=== PATIENT | male | born 1955 | race Caucasian/White ===

== ENCOUNTER 2016-08-22 18:14 | Observation (INO) | payer BC ==
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
--- NOTE | ~2016-08-22 | OR ---
Unit #: [id number] #: [id number] Patient: MAURO MARTINEZ [id number] [address] [place], [place] [address] [id number] MR#: [id number] NAME: MAURO MARTINEZ ROOM: 218 Date of Procedure: 08/24/2016 Admission Date: 08/22/2016 Surgeon: Glenn Fitzgerald M.D. : 1955 Attending Physician: Sean Gibbons M.D. OPERATIVE REPORT PREOPERATIVE DIAGNOSIS Anemia. PROCEDURES PERFORMED Upper gastrointestinal endoscopy with biopsy and colonoscopy with polypectomy. POSTOPERATIVE DIAGNOSES For upper endoscopy: Mild prepyloric antral gastritis, otherwise normal examination up to third part of the duodenum. Biopsy obtained from the antrum for CLOtest. For colonoscopy: 1. The patient had 3 sessile polyps in the transverse colon and 2 in the cecum. All the polyps were removed using snare cautery polypectomy, retrieved and sent for histology. 2. Rest of the examination up to cecum and terminal ileum was normal. The quality of prep was excellent. RECOMMENDATIONS Allow regular diet. The patient can be discharged home from GI standpoint. He will follow up in the office on 09/06/2016 at 10:00 a.m. SEDATION USED MAC. DESCRIPTION OF PROCEDURE Following detailed explanation of the potential risks and complications of an upper endoscopy and a colonoscopy, namely perforation, bleeding, complication related to sedation, the patient was brought to GI lab and laid in the left lateral decubitus position. Lubricated tip of the Olympus video upper endoscope was passed through the bite block into the proximal esophagus under direct vision. The entire esophageal mucosa was examined and appeared normal. Z-line was nicely demarcated, there being no esophagitis or hiatus hernia. The scope was then advanced into the gastric cavity and the latter was insufflated. Mucosa of the fundus, body, and antrum was examined. Mild prepyloric antral erythema erosions were noted indicating antral gastritis. Pylorus was intubated with visualization of the normal duodenal bulb and second and third part of the duodenum. Upon withdrawal and retroflexion, incisura, cardia, and greater curve examined and biopsy obtained from the antrum for CLOtest. The scope Unit #: [id number] #: [id number] Patient: MAURO MARTINEZ was then withdrawn in the distal esophagus. The entire esophageal mucosa was examined all the way up to pharynx. No additional findings noted. The examination table was then turned by 180 degrees and the patient positioned for a colonoscopy. A digital rectal examination was performed which was normal. Lubricated tip of the Olympus video colonoscope was inserted through the anus and advanced under direct vision. The scope was advanced and passed up to sigmoid into descending colon. No diverticula were noted in this area. The scope tip was then navigated all the way up to cecum with visualization of ileocecal valve and the appendiceal orifice. Preparation was excellent with good visualization and photodocumentation was obtained. Last few inches of the terminal ileum also visualized after intubation of the ileocecal valve and appeared normal. Successive segments of the colonic mucosa were examined upon withdrawal. The patient was noted to have a total of 5 polyps, 3 in the transverse colon and 2 in the cecum. The polyps ranged in size from 5 mm to 1.5 cm each. All the polyps were sessile and were removed using snare polypectomy or snare cautery polypectomy. All were retrieved and sent for histology. Excellent hemostasis was achieved and photodocumentation was obtained. No additional polyps were noted. The patient did not have any diverticulosis nor any hemorrhoids. The scope was then withdrawn. The patient returned to the recovery area. He tolerated the procedure without any postprocedure complications. Dictated by... Rosenda Cordoba/sherly TD: 08/25/2016 23:07 JOB #: [id number] CC: Rosenda Robertson M.D. OPERATIVE REPORT Page 1 of 1 X Glenn Fitzgerald MD X PROCEDURE OPERATIVE NOTE
--- NOTE | ~2016-08-22 | CO ---
Unit #: [id number] #: [id number] Patient: MAURO MARTINEZ [id number] [address] [place], [place] [address] [id number] I MR#: [id number] NAME: MAURO MARTINEZ ROOM: 218 Age: 61 Sex: M Admission Date: 08/22/2016 : 1955 Attending Physician: Sean Gibbons M.D. Primary Care Physician: No Primary Care Physician Consultation Date: 08/23/2016 CONSULTATION REPORT REASON FOR CONSULTATION Moderate to severe anemia. HISTORY This pleasant gentleman, who is 61 years old, works at an [employer] facility. The patient is of [place] origin but speaks fairly good Arabic. He presented with a history of fatigue to his family doctor. Upon workup, found to have hemoglobin of 7.7 and patient was also found to have occult gastrointestinal blood loss on examination. He has postprandial dyspeptic symptoms and takes [place]-Laurel on an as needed basis. He also describes symptoms suggestive of prostatic enlargement which has been treated in the past. There is no history of obvious melena, hematochezia or hematemesis. He has a history of renal stones in the past. PAST MEDICAL HISTORY Significant for history of renal stones and prostatism. PREVIOUS SURGERIES The patient has not had any abdominal surgeries in the past. MEDICATIONS His medications include: 1. Multivitamins. 2. Sulfamethoxazole. FAMILY HISTORY Significant for type 2 diabetes. No family history of colon or pancreatic cancer or liver disease. SOCIAL HISTORY Does not smoke. Drinks very, very rarely. REVIEW OF SYSTEMS A detailed review of organ systems does not reveal any recent weight loss. No history of fevers, chills, rigors. No history of headaches, seizures, chest pain or syncope. There is a history of fatigue and weakness on exertion. No history of skin rash, aphthous ulcers in the mouth, reactive arthritis. No history of focal seizures or extremity weakness. No history of cough, expectoration, hemoptysis. The rest of the review of organ system is unremarkable. PHYSICAL EXAMINATION GENERAL APPEARANCE: He is alert, oriented and comfortable. VITAL SIGNS: Vital signs are stable with a temperature of 98.2, pulse 77 Unit #: [id number] #: [id number] Patient: PELARCIA,MAURO per minute and regular, respiratory rate is 20, blood pressure 154/92. He weighs 260 pounds and appears obese. He has mild pallor, there being no icterus or lymphadenopathy and grade 1 pitting peripheral edema. CARDIOVASCULAR EXAMINATION: Normal heart sounds. No murmurs. LUNGS: Auscultation over the lungs reveal normal breath sounds. Good air entry. ABDOMEN: Soft, obese, nontender. Liver and spleen are not palpable. Bowel sounds normal. DIAGNOSTIC STUDIES LABORATORY: Lab evaluation shows hemoglobin of 7.7, MCV of 112. His metabolic profile is normal. LFTs are also normal. The serum iron, B12 and folic acid have been sent. B12 and folic acid are normal. Serum iron is low and serum ferritin is high indicating acute phase reaction. Stool studies for occult blood are positive. CLINICAL IMPRESSION The patient has dimorphic anemia, underlying macrocytosis: In the absence of alcoholism, does suggest primary bone marrow etiology of macrocytosis. The patient also has occult GI blood loss and dyspeptic symptoms. Panendoscopy is, therefore, warranted from GI standpoint. The pros and cons of the procedure, potential risks and complications, were discussed with the patient and he was reassured. In case endoscopy and colonoscopy are normal, patient will require hematologic workup as an outpatient. Thank you very much for asking me to see this pleasant gentleman. I appreciate the consult. Dictated by... Rosenda Cordoba/lester TD: 08/24/2016 07:38 JOB #: [id number] CC: Vel Monte M.D. CONSULTATION REPORT Page 1 of 1 X Glenn Fitzgerald MD X CONSULTATION REPORT
--- NOTE | ~2016-08-22 | DS ---
Unit #: [id number] #: [id number] Patient: MAURO MARTINEZ [id number] [address] [place], [place] [address] [id number] MR#: [id number] NAME: MAURO MARTINEZ ROOM: 218 Age: 61 Sex: M Admission Date: 08/22/2016 : 1955 Discharge Date: 08/24/2016 Attending Physician: Sean Gibbons M.D. DISCHARGE SUMMARY DISCHARGE DIAGNOSES 1. Anemia. 2. B12 deficiency. 3. Morbidly obese with a body mass index of 39. ESCROW OFFICER Dr. Fitzgerald with Gastroenterology. PROCEDURE Patient had an EGD and colonoscopy by Dr. Fitzgerald on August 24, 2016. Please refer to Dr. Fitzgerald's full dictated procedure note for further details. DIAGNOSTIC STUDIES LABORATORY: BMP with glucose of 105, BUN 17, creatinine 1.1, sodium 138, potassium 3.9, chloride 107, CO2 of 23, calcium 8.8, magnesium 2.3, total protein 7.3, albumin 4.1, total bilirubin 0.9, AST 28, ALT 34, and alkaline phosphatase 81. CBC with WBC of 2.33, hemoglobin 8.4, hematocrit 25.9, MCV 111.4, MCH 36.1, MCHC 32.4, RDW 14.7, platelets 160,000, and MPV is 9.3. IMAGING: None. HOSPITAL COURSE The patient is a 61-year-old male with no significant past medical history but is morbidly obese, who presented to the emergency department as a referral by his family physician for anemia. Patient has not been to a family physician for some time but recently started seeing Dr. Monte for concern for a UTI. Patient told me that he had finished a course of Bactrim for a UTI but had blood drawn by Dr. Monte's office and was referred to the emergency department for anemia. His hemoglobin in the emergency department was 7.7. He was Hemoccult positive. He was admitted and was seen in consultation by Dr. Fitzgerald. When assessed, his B12 was low at 332. At this time, we are recommending vitamin B12 replacement at 1000 mcg orally daily, and further recommendations will be made by Dr. Fitzgerald after he has completed an EGD, as well as colonoscopy. DISCHARGE CONDITION Stable. FOLLOWUP 1. With Dr. Monte within one to two weeks after this hospitalization. 2. With Dr. Fitzgerald as needed. DISCHARGE ACTIVITY Unit #: [id number] #: [id number] Patient: MAURO MARTINEZ No restriction in his activities. Patient is to ambulate. He is to resume activities as was prior to hospitalization with ambulating every day. DISCHARGE DIET Heart-healthy diet. DISCHARGE MEDICATIONS 1. Protonix 40 mg orally daily. 2. Vitamin B12 at 1000 mcg orally daily. 1. Dictated by... Caden Pal PA-C for Rosenda Contreras TD: 08/26/2016 18:47 JOB #: [id number] DISCHARGE SUMMARY Page 1 of 1 X X DISCHARGE SUMMARY
[2016-08-22 17:58] LABS: BASOPHIL% 0.4 % (0-2.5); EOSINOPHIL# 0.1 X10e3 (0-0.7); EOSINOPHIL% 0.9 % (0.0-7.0); HEMATOCRIT 23.6 % (35.0-45.0); HEMOGLOBIN 7.7 gm/dL (12.0-16.0); LYMPHOCYTE# 2.3 X10e3 (1.0-3.5); LYMPHOCYTE% 28.1 % (17.0-45.0); MEAN CELL VOLUME 112.5 FL (83-96); MEAN CORPUSCULAR HEMOGLOBIN 36.9 PG (28-34); MEAN CORPUSCULAR HGB CONC 32.8 g/dL (30-36); MEAN PLATELET VOLUME 9.1 FL (6.5-11.5); MONOCYTE# 0.4 X10e3 (0-1.0); MONOCYTE% 5.2 % (3.0-12.0); NEUTROPHIL# 5.5 X10e3 (1.5-7.1); NEUTROPHIL% 65.4 % (40-75); PLATELET COUNT 163 X10e3 (140-420); RED CELL DISTRIBUTION WIDTH 15.9 % (11.0-15.5); WHITE BLOOD COUNT 8.3 X10e3 (4.0-10.5)
[2016-08-22 17:59] LABS: DIFF IND YES
[2016-08-22 18:06] LABS: PARTIAL THROMBOPLASTIN TIME 23.8 SECONDS (23.5-31.3); PROTHROMBIN TIME (PATIENT) 10.2 SECONDS (9.6-11.5)
[2016-08-22 18:13] LABS: PLATELET ESTIMATE NORMAL (NORMAL)
[2016-08-22 18:22] LABS: ALBUMIN SERUM 4.1 g/dL (3.5-5.0); BILIRUBIN, DIRECT 0.1 mg/dL (0.0-0.2); BILIRUBIN,INDIRECT 0.8 mg/dL (0.0-0.9); BILIRUBIN,TOTAL 0.9 mg/dL (0.2-2.0); BUN/CREATININE RATIO 15.38; CALCIUM SERUM 8.6 mg/dL (8.4-10.2); CREATININE SERUM 1.3 mg/dL (0.6-1.4); GLOM FILT RATE Estimated 43.6 mL/min (>60); POTASSIUM 3.7 mmol/L (3.5-5.1); PROTEIN TOTAL SERUM 7.3 g/dL (6.0-8.3)
[2016-08-22 20:07] LABS: URINE SOURCE CLEAN CATCH
[2016-08-22 20:12] LABS: URINE APPEARANCE CLOUDY; URINE BILIRUBIN NEG (NEG); URINE BLOOD NEG (NEG); URINE COLOR YELLOW; URINE GLUCOSE NEG (NEG); URINE KETONE TRACE (NEG); URINE LEUKOCYTE ESTERASE 1+ (NEG); URINE NITRATE NEG (NEG); URINE PH 5.5 (5-8); URINE PROTEIN NEG (NEG); URINE SPECIFIC GRAVITY 1.024 (1.003-1.035)
[2016-08-22 20:15] LABS: CULTURE INDICATED? YES; URINE BACTERIA AUWI NEG (NEGATIVE); URINE SQUAMOUS EPITHELIAL CELL NONE SEEN /[HPF]
[2016-08-22 20:27] LABS: URINE CRYSTALS CALCIUM OXALATE /[HPF]
[2016-08-23] MEDS ORDERED: SULFAMETHOXAZO1 EACH PO (06:47)
[2016-08-23 08:39] LABS: BASOPHIL% 0.4 % (0-2.5); EOSINOPHIL# 0.1 X10e3 (0-0.7); EOSINOPHIL% 1.3 % (0.0-7.0); HEMATOCRIT 25.4 % (38.0-50.0); HEMOGLOBIN 8.2 gm/dL (13.0-16.0); LYMPHOCYTE# 1.5 X10e3 (1.0-3.5); LYMPHOCYTE% 23.2 % (17.0-45.0); MEAN CELL VOLUME 111.9 FL (83-96); MEAN CORPUSCULAR HGB CONC 32.2 g/dL (30-36); MEAN PLATELET VOLUME 8.9 FL (6.5-11.5); MONOCYTE# 0.3 X10e3 (0-1.0); MONOCYTE% 4.8 % (3.0-12.0); NEUTROPHIL# 4.5 X10e3 (1.5-7.1); NEUTROPHIL% 70.3 % (40-75); PLATELET COUNT 155 X10e3 (140-420); RED BLOOD COUNT 2.27 X10e (3.90-5.60); RED CELL DISTRIBUTION WIDTH 15.4 % (11.0-15.5); WHITE BLOOD COUNT 6.4 X10e3 (4.0-10.5)
[2016-08-23 08:42] LABS: DIFF IND YES
[2016-08-23 08:50] LABS: CALCIUM SERUM 8.6 mg/dL (8.4-10.2); GLOM FILT RATE Estimated 79.8 mL/min (>60); POTASSIUM 3.8 mmol/L (3.5-5.1)
[2016-08-23 10:58] LABS: ANISOCYTOSIS SL; PLATELET ESTIMATE NORMAL (NORMAL); POIKILOCYTOSIS SL; POLYCHROMASIA SL; RBC NORMAL YES; TEAR DROP CELLS PRESENT
[2016-08-23 14:09] LABS: IRON SERUM 66 ug/dL (45-182); TOTAL IRON BINDING CAPACITY 289 ug/dL (252-460); TRANSFERRIN 206 mg/dL (180-329); TRANSFERRIN SATURATION 23 % (20-50)
[2016-08-23 14:22] LABS: FOLATE (FOLIC ACID) 19.6 ng/mL (>5.8)
[2016-08-24 06:34] LABS: HEMATOCRIT 25.9 % (38.0-50.0); HEMOGLOBIN 8.4 gm/dL (13.0-16.0); MEAN CELL VOLUME 111.4 FL (83-96); MEAN CORPUSCULAR HEMOGLOBIN 36.1 PG (28-34); MEAN CORPUSCULAR HGB CONC 32.4 g/dL (30-36); MEAN PLATELET VOLUME 9.3 FL (6.5-11.5); RED BLOOD COUNT 2.33 X10e (3.90-5.60); RED CELL DISTRIBUTION WIDTH 14.7 % (11.0-15.5)
[2016-08-24 06:54] LABS: BUN/CREATININE RATIO 15.45; CALCIUM SERUM 8.8 mg/dL (8.4-10.2); CREATININE SERUM 1.1 mg/dL (0.6-1.4); GLOM FILT RATE Estimated 71.1 mL/min (>60); MAGNESIUM 2.3 mg/dL (1.6-3.0); POTASSIUM 3.9 mmol/L (3.5-5.1)
[2016-08-24] MEDS ORDERED: B-121000 MC1 PO (17:15)
[2016-08-24] MEDS ORDERED: PROTONIX PO (17:15)
== END 2016-08-24 20:02 | disposition home or self-care (01) | DRG 812 ==
LOC: CED 18:14 → CEDOF 19:55 → C2A 08-23 11:02
PROVIDERS: Emergency Medicine; Physician Assistant Medical
DX: D53.1 Other megaloblastic anemias, not elsewhere classified (principal); D12.3 Benign neoplasm of transverse colon; D12.0 Benign neoplasm of cecum; K29.70 Gastritis, unspecified, without bleeding; E53.8 Deficiency of other specified B group vitamins; Z83.3 Family history of diabetes mellitus; E66.01 Morbid (severe) obesity due to excess calories; Z68.39 Body mass index [BMI] 39.0-39.9, adult; Z87.442 Personal history of urinary calculi
CPT/HCPCS: 36415; 80048; 80076; 81003; 82607; 82728; 82746; 83540; 83550; 83735; 85025; 85027; 85610; 85730; 86850; 86870; 86880; 86885; 86900; 86901; 86905; 86970; 86978; 87077; 87086; 88305; 96372; 96374; 99285; C9113; G0378; J2250; J3420